=== PATIENT | female | born 1975 | race African-American/Black ===

== ENCOUNTER 2017-06-03 18:22 | Emergency (ER) | payer OTHER ==
[~2017-06-03] VITALS: Ht 157.5 cm; Wt 73.5 kg
[~2017-06-03 18:22] MED LIST: BACTRIM DS TAB1 EACH PO; NOHOMEMEDICATIONS
[2017-06-03] MEDS ORDERED: ORTHO TRI-CYCL1 EACH PO (18:31)
[2017-06-03] MEDS ORDERED: NAPROSYN500 MG PO (19:04)
[2017-06-03 19:48] VITALS: BP 121/80
== END 2017-06-03 19:50 | disposition home or self-care (01) ==
LOC: ER 18:22
DX: S86.812A Strain of other muscle(s) and tendon(s) at lower leg level, left leg, initial encounter (principal); Z88.0 Allergy status to penicillin; W18.39XA Other fall on same level, initial encounter; Y93.89 Activity, other specified; Y92.89 Other specified places as the place of occurrence of the external cause; Y99.8 Other external cause status